=== PATIENT | male | born 2000 | race Caucasian/White ===

== ENCOUNTER 2024-05-08 17:33 | Emergency (ER) | payer OTHER, SELFPAY ==
[2024-05-08 17:48] VITALS: BP 152/98
[2024-05-08 18:08] LABS: Urine Albumin 1+ (Neg - Trace); Urine Bilirubin Negative (Negative); Urine Character Slightly Cloudy (Clear); Urine Color Amber; Urine Glucose Negative (Negative); Urine Ketone Negative (Negative); Urine Leukocyte Trace (Negative); Urine Nitrite Negative (Negative); Urine Occult Blood 4+ (Negative); Urine Urobilinogen 2+ (Neg - 1+)
[2024-05-08 18:33] LABS: Urine Red Blood Cell 26-30 /HPF (0-2)
--- NOTE | 2024-05-08 18:45 | ED.GENMED ---
History of Present Illness
General
Chief Complaint: Male Genito-Urinary Symptoms
Source: patient
Exam Limitations: none
Time Seen by Provider: 05/08/24 18:24
Nursing documentation reviewed up to this point in time: agreed with
History of Present Illness
History of Present Illness:
23-year-old male with no past medical history states he was feeling 'under the weather' past 3 days with fatigue, mild headache. 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
brownish colored so he started drinking a lot of water with electrolytes. Today he feels a lot better in general but is peeing zaid red bloody urine. He denies fever or chills, denies abdominal pain or flank pain.
Past History
Past History
ED Past Medical History: None
ED Past Surgical History: None
Social History
Tobacco: Non-smoker
Alcohol: None
Personal: Single
Living: with roommate
Employment: Employed
Review of Systems
Review of Systems
Allergies reviewed?: Yes
All Other Systems: ROS reviewed and negative except as documented in HPI and ROS
Constitutional: Reports fatigue (Yesterday but feels better today); Denies fever or chills
ABD/GI: Denies abdominal pain, nausea, vomiting, diarrhea or anorexia
: Reports dark urine; Denies dysuria, frequency, flank pain, difficulty voiding or urgency
Musculoskeletal: Reports no symptoms
Skin: Reports no symptoms
Neurological: Reports no symptoms
Phy Exam
Physical Exam
Physical Exam:
GENERAL: No acute distress. A&Ox3.
CONSTITUTIONAL: Afebrile.
RESPIRATORY: Regular respirations, nonlabored, lungs clear.
CARDIOVASCULAR: Regular rate and rhythm, no murmurs, no rubs.
GI: Soft, nontender, normal BS
MUSCULOSKELETAL: Moves with ease. Well perfused.
SKIN: Warm, dry, pink
PSYCH: Normal mood and affect. Well kept, interactive and appropriate
NEUROLOGIC: Awake, alert and oriented. No focal neurological deficits
Course
Orders/Labs/Results
Orders:
Orders
05/08/24 18:02
Urine Culture Reflexed from UA [Urinalysis Reflex To Culture] Urgent
Date Specimen was Collected: 05/08/24
Time Specimen was Collected: 17:51
Urine Microscopic Reflex Cult Urgent
05/08/24 18:25
CT Abd/pel Without Iv Or Oral Urgent
Comment:
Reason For Exam: Hematuria
05/08/24 19:36
Complete Blood Count/With Diff Urgent
05/08/24 20:01
Comprehensive Metabolic Panel Urgent
Creatine Phosphokinase Urgent
Comment: ADD ON
05/08/24 20:44
Add On- LAB Urgent
Tests Added?: CPK
Abnormal Lab Results
05/08/24 05/08/24
18:02 19:36
MCV 78.2 L fL
(80.0-94.0)
Plt Count 37 L 10^3/uL
(130-400)
MPV 10.5 H fL
(7.4-10.4)
Abs Immat Gran (auto) 0.1 H 10^3/uL
(0-0.05)
Absolute Monos (auto) 1.0 H 10^3/uL
(0.1-0.6)
Immature Gran % 0.9 H %
(0-0.5)
Monocytes % 13.4 H %
(1.7-9.3)
Ur Occult Blood Reflex 4+ A
(Negative)
Urine Urobilinogen 2+ A
(Neg - 1+)
Leukocyte Esterase Rfl Trace A
(Negative)
Urine RBC 26-30 A /HPF
(0-2)
Urine Albumin (Reflex) 1+ A
(Neg - Trace)
05/08/24 19:36
05/08/24 20:01
Vital Signs
Initial and Last Documented VS:
Initial Vital Signs
Temp Pulse Resp BP Pulse Ox
98.3 F 90 20 152/98 98
05/08/24 17:48 05/08/24 17:48 05/08/24 17:48 05/08/24 17:48 05/08/24 17:48
Last Documented Vital Signs
Temp Pulse Resp BP Pulse Ox
98.3 F 90 20 152/98 98
05/08/24 17:48 05/08/24 17:48 05/08/24 17:48 05/08/24 17:48 05/08/24 17:48
MDM/Problems Addressed
Differential Diagnosis Includes:
Kidney stone, hemorrhagic cystitis, dehydration
MDM/Problems Addressed:
23-year-old male with no past medical history states he was feeling 'under the weather' past 3 days with fatigue, mild headache. 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
brownish colored so he started
7:30 PM
CBC with no clinically significant abnormality
CMP normal
CPK WNL
CT abdomen pelvis radiology report read: IMPRESSION:
1. No significant abnormality identified in the abdomen or pelvis, within the limits of unenhanced CT, as described above.
This may simply be intermittent hematuria for no known reason, he may have been overworked and stressed and dehydrated yesterday working outside and feeling exhausted afterwards, no sign of infection.
Plan: Continue to drink plenty of fluids, follow-up with urology if urine is not completely cleared within the next week.
Return symptoms discussed
*Critical Care Note
Total Time (30-74mins, 75-104mins- exclusive of procedures): Not Applicable
ED Attending Note
-
Portions of this chart may have been created with voice recognition software.� Occasional wrong word or��sound alike� substitutions may have occurred due to the inherent limitations of voice recognition software.
Discharge Plan
Departure
Patient Disposition: Home (Routine Discharge)
Date of Disposition: 05/08/24
Time of Disposition: 20:34
Patient with high blood pressure during this ER visit?: No
Condition: Good
Discharge Problem:
Hematuria
Instructions: Blood in the Urine (Hematuria), Adult (DC)
Referrals:
Gadiel Schmitt MD [Active] - As needed
PRIVATE,PHYSICIAN [Family Provider] -
Activity Restrictions/Additional Instructions:
As we discussed, nothing worrisome in your workup here today.
Continue to drink plenty of fluids, make an appointment to see the urologist or your family doctor in 1 week if your urine is not completely cleared by then.
Interventions
Interventions:
*Risk Screen - Suicide Last Done: 05/08/24 17:48
*General Assessment Last Done: 05/08/24 17:48
*Neglect/Abuse Screening Last Done: 05/08/24 17:48
ED- Fall Risk Assessment Last Done: 05/08/24 20:54
*ED COVID-19 Vaccine History Last Done: 05/08/24 20:54
*Nursing Disposition Last Done: 05/08/24 20:54
Discharge Date and Time
Discharge Date/Time: 05/08/24 20:54
Print Language: ESTONIAN
[2024-05-08 19:48] LABS: % Basophils 0.5 % (0-2); % Immature Granulocytes 0.9 % (0-0.5); % Lymphocytes 22.9 % (20.5-51.1); % Monocytes 13.4 % (1.7-9.3); % Neutrophils 59.3 % (42.2-75.2); Absolute Eosinophils 0.2 10^3/uL (0-0.7); Absolute Immature Granulocytes 0.1 10^3/uL (0-0.05); Absolute Lymphocytes 1.8 10^3/uL (1.2-3.4); Absolute Neutrophils 4.6 10^3/uL (1.4-6.5); Hemoglobin 15.5 g/dL (13.0-18.0); Mean Corp Hgb Conc. 35.2 g/dL (33.0-37.0); Mean Corpuscular Hgb 27.5 pg (27.0-31.0); Mean Corpuscular Volume 78.2 fL (80.0-94.0); Mean Platelet Volume 10.5 fL (7.4-10.4); Nucleated Red Blood Cells % 0 % (-); Platelet Count 37 10^3/uL (130-400); Red Blood Cell Count 5.63 10^6/uL (4.70-6.10); Red Cell Dist. Width 12.9 % (11.5-14.5); White Blood Cell Count 7.8 10^3/uL (4.8-10.8)
[2024-05-08 20:30] LABS: ALT (SGPT) 38 U/L (0-50); AST (SGOT) 34 U/L (17-59); Albumin 4.3 g/dl (3.5-5.0); Alkaline Phosphatase 95 U/L (38-126); Blood Urea Nitrogen 12 mg/dl (9-20); Carbon Dioxide 28 mmol/L (22-30); Chloride 100 mmol/L (98-107); Glucose 91 mg/dl (70-99); Potassium 4.1 mmol/L (3.5-5.1); Sodium 137 mmol/L (135-145); Total Bilirubin 0.6 mg/dl (0.2-1.3); Total Protein 7.3 g/dl (6.3-8.2); eGFR > 60.00
[2024-05-08 20:58] LABS: Creatine Phosphokinase 97 U/L (55-170)
== END 2024-05-08 20:54 | disposition home or self-care (01) ==
LOC: EMR 17:33
PROVIDERS: Registered Nurse; EMERGENCY PHYSICIAN Emergency Medicine
DX: R31.9 Hematuria, unspecified (principal)
CPT/HCPCS: 99284; 74176; 80053; 81003; 81015; 82550; 85025